=== PATIENT | male | born 1995 | race Caucasian/White ===

== ENCOUNTER → 2016-05-16 | Outpatient (CLI) | payer OTHER ==
[~2016-05-16] MED LIST: ALBU17AE23 IH; CALA177S11 TP; CHOL4PAC17 PO; FAMO-119 PO; PRD20T PO; [UNRECOGNIZED DRUG - REMARK]; [UNRECOGNIZED DRUG - REMARK]
--- OUTSIDE RECORDS SUMMARY | 2016-05-16 12:30 | XMS REPORT | Continuity of Care Document ---
[facility] Address Unknown Phone Unavailable Care Team Providers Care Personal Fitness Manager Name Role Phone No Pcp, Na PCP Unavailable Source Comments Some departments are not documenting in the electronic medical record. If you do not see the information that you expected, contact Release of Information in the Health Information Management department at [phone] for further assistance in locating additional records.[facility] Active Allergies and Adverse Reactions Allergen Noted Date Severity Reactions Comments Morphine 10/13/2014 Medium UNKNOWN "it shuts down my kidneys" Current Medications Prescription Sig. Disp. Refills Start End Date Status Date azithromycin (ZITHROMAX) Z-LAMAR: Take 2 tabs by 6 Tab 0 10/14/19 Active 250 mg tablet mouth on day 1, followed 15 by 1 tab by mouth daily on days 2-5. nystatin (MYCOSTATIN) Take 5 mL by mouth four 60 mL 0 10/14/19 Active 100,000 units/mL oral times daily. 15 suspension Active Problems Not on file Social History Tobacco Use Types Packs/Day Years Used Date Never Smoker Alcohol Use Drinks/Week oz/Week Comments No Last Filed Vital Signs Vital Sign Reading Time Taken Blood Pressure 152/96 10/13/2014 5:45 PM CDT Pulse - - Temperature 36.8 C (98.2 F) 10/13/2014 5:45 PM CDT Respiratory Rate - - Height - - Weight 136.079 kg (300 lb) 10/13/2014 5:45 PM CDT Body Mass Index - - Oxygen Saturation 98% 10/13/2014 5:45 PM CDT Plan of Care Health Maintenance Due Date Last Done Comments Physical (Comprehensive) 2001 Exam Hpv Vaccines (#1) 2005 Pertussis Vaccine 2005 Tetanus Vaccine 2011 Influenza Vaccine 01/12/2016 Results from Last 3 Months Not on file
[2016-05-16 13:03] LABS: CALCIUM 9.6 MG/DL (8.5-10.1); CREATININE SERUM 1.73 MG/DL (0.60-1.30); POTASSIUM 3.9 MMOL/L (3.6-5.0)
== END ==
LOC: LAB 12:26
PROVIDERS: ATTEND Internal Medicine Critical Care Medicine
DX: T17.208A Unspecified foreign body in pharynx causing other injury, initial encounter (principal); S01.02XA Laceration with foreign body of scalp, initial encounter; S07.0XXA Crushing injury of face, initial encounter; N17.9 Acute kidney failure, unspecified; V29.9XXA Motorcycle rider (driver) (passenger) injured in unspecified traffic accident, initial encounter; Y99.8 Other external cause status
CPT/HCPCS: 36415; 80048

== ENCOUNTER → 2016-07-04 | Outpatient (CLI) | payer OTHER ==
--- OUTSIDE RECORDS SUMMARY | 2016-07-04 12:42 | XMS REPORT | Continuity of Care Document ---
Author Author [facility] Organization [facility] Address Unknown Phone Unavailable Care Team Providers Care Patient Safety Attendant Name Role Phone No Pcp, Na PCP Unavailable Source Comments Some departments are not documenting in the electronic medical record. If you do not see the information that you expected, contact Release of Information in the Health Information Management department at [phone] for further assistance in locating additional records.[facility] Active Allergies and Adverse Reactions Allergen [...]
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
--- NOTE | 2016-07-04 14:42 | Diagnostic Imaging Report ---
Lumbar spine. INDICATION: Back pain. FINDINGS: AP, lateral, and spot lateral views were obtained. The vertebral body heights and alignment are within normal limits and similar to the abdomen exam of 01/09/2010. The intervertebral disc spaces are fairly well maintained. There is no fracture or acute bony abnormality evident. There is mild symmetrical sclerosis of the sacroiliac joints. There is no evidence for a paraspinal mass. IMPRESSION: There is no evidence for an acute bony abnormality. Dictated by: Dictated on workstation # [id number]
== END ==
LOC: RAD 12:38
PROVIDERS: ATTEND Registered Nurse
DX: M54.6 Pain in thoracic spine (principal); M54.5 Low back pain
CPT/HCPCS: 72072; 72100

== ENCOUNTER → 2016-11-08 | Outpatient (CLI) | payer OTHER ==
--- NOTE | 2016-11-08 15:33 | Diagnostic Imaging Report ---
Multiplanar multisequence MRI of the thoracic spine performed without intravenous contrast. INDICATION: Back pain. FINDINGS: There is satisfactory alignment of the thoracic spine. The vertebral body heights are preserved. Disc heights and disc signal is normal. The spinal cord has normal caliber, contour and signal. There is no disc herniation at any level. There is no spinal canal stenosis or cord compression seen at any level. The neural foramina are patent at all thoracic spine levels. The bone marrow signal is fairly homogeneous with no focal lesion or abnormality identified. IMPRESSION: Unremarkable exam. Dictated by: Dictated on workstation # [id number]
== END ==
LOC: RAD 11:11
PROVIDERS: ATTEND Family Medicine
DX: M54.6 Pain in thoracic spine (principal)
CPT/HCPCS: 72146

== ENCOUNTER 2019-11-28 00:44 | Emergency (ER) | payer OTHER ==
[~2019-11-28] VITALS: Ht 182.8 cm; Wt 125.6 kg
[2019-11-28] MEDS ORDERED: TETANUS,DIPTH,PERTUSS P/F (BOOSTRIX) 0.5 ML VIAL IM ONE (01:15)
[2019-11-28] MEDS ORDERED: HYDROcodone/APAP 7.5 MG/325 MG (LORTAB, LORCET PLUS) TABLET PO STA (02:42)
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
[2019-11-28] MEDS ORDERED: LIDOCAINE 1% INJ 20 ML 20 ML VIAL INJ ONE (02:45)
[2019-11-28] MEDS ORDERED: AMOXICILLIN 500 MG (POLYMOX) CAP PO STA (03:32)
[2019-11-28] MEDS ORDERED: HYDR-83 PO (03:44)
[2019-11-28] MEDS ORDERED: AMOX500C2 PO (03:44)
[2019-11-28] MEDS ORDERED: KETOROLAC 60 MG/2 ML VIAL IM STA (03:55)
[2019-11-28 04:03] VITALS: BP 160/88
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
== END 2019-11-28 04:02 | disposition home or self-care (01) ==
LOC: EDUNIT# 00:44 → ER 00:47
DX: S09.90XA Unspecified injury of head, initial encounter (principal); S02.2XXB Fracture of nasal bones, initial encounter for open fracture; S01.511A Laceration without foreign body of lip, initial encounter; R40.2142 Coma scale, eyes open, spontaneous, at arrival to emergency department; R40.2252 Coma scale, best verbal response, oriented, at arrival to emergency department; R40.2362 Coma scale, best motor response, obeys commands, at arrival to emergency department; Z88.5 Allergy status to narcotic agent; Z23 Encounter for immunization; Z79.52 Long term (current) use of systemic steroids; Y04.8XXA Assault by other bodily force, initial encounter; Y92.481 Parking lot as the place of occurrence of the external cause
CPT/HCPCS: 12011; 70450; 70486; 90715